=== PATIENT | male | born 1955 | race Caucasian/White ===

== ENCOUNTER 2017-03-23 09:08 | Emergency (ER) | payer OTHER ==
[~2017-03-23] VITALS: Ht 175.3 cm; Wt 92.0 kg
[~2017-03-23 09:08] MED LIST: Z.0.NO CURRENT MEDS
[2017-03-23 09:11] VITALS: BP 134/82; PULSE 99; RESP 16; TEMP 98.6; O2SAT 98
--- NOTE | 2017-03-23 09:34 | PD ---
HPI Chief Complaint: Abdominal Pain Time Seen by Provider: 09:16 Travel History International Travel<30 days: No Contact w/Intl Traveler<30days: No Traveled to known affect area: No History of Present Illness HPI 61-year-old male presents to emergency department with a two-month history of right groin pain. The pain is moderate when he walks or coughs and goes away when he rests/sits. Pain is not exacerbated by lifting his legs, ejaculation, urinating, bowel movements. Patient denies fever, chills, abdominal pain, nausea, vomiting, diarrhea. Denies illicit drug use. Patient denies surgical history of his abdomen. Pt has seen his PCP, Dr. Serrano who told him this was a hernia. [facility] Past Medical History Blood Disorders: No Cardiovascular Problems: No Endocrine: No Gastrointestinal Disorders: No (C/O ADB PAIN) Genitourinary: No Immune Disorder: No Musculoskeletal: Yes Neurologic: No Psychiatric: No Reproductive: No Respiratory: No Past Surgical History Tonsillectomy: Yes Social History Alcohol Use: Yes (Beer a night) Tobacco Use: No Substance Use: No Allergies-Medications (Allergen,Severity, Reaction): Coded Allergies: No Known Allergies (Verified Adverse Reaction, Unknown, 03/23/17) Reported Meds & Prescriptions Reported Meds & Active Scripts Active No Active Prescriptions or Reported Medications Review of Systems Except as stated in HPI: all other systems reviewed are Neg Physical Exam Narrative GENERAL: Well-nourished, well-developed patient. SKIN: Focused skin assessment warm/dry. HEAD: Normocephalic. EYES: No scleral icterus. No injection or drainage. NECK: Supple, trachea midline. No JVD or lymphadenopathy. CARDIOVASCULAR: Regular rate and rhythm without murmurs, gallops, or rubs. RESPIRATORY: Breath sounds equal bilaterally. No accessory muscle use. GASTROINTESTINAL: Abdomen soft, non-tender, nondistended. Protuberant. Examined with cutting and splicing supervisor in the room: Right lower/right pelvic region tender to palpation. Hernia left direct, right indirect. that reduces spontaneously. No edema, ecchymosis. MUSCULOSKELETAL: No cyanosis, or edema. BACK: Nontender without obvious deformity. No CVA tenderness. Data Data Last Documented VS Vital Signs Date Time Temp Pulse Resp B/P (MAP) Pulse Ox O2 Delivery O2 Flow Rate FiO2 03/23/17 10:02 03/23/17 09:11 98.6 99 16 98 Orders Orders Ed Discharge Order (03/23/17 09:49) MDM Medical Decision Making Medical Screen Exam Complete: Yes Emergency Medical Condition: Yes Differential Diagnosis Hernia versus appendicitis versus bowel obstruction versus testicular pain Narrative Course 61-year-old male presents to emergency department with a two-month history of right groin pain. The pain is moderate when he walks or coughs and goes away when he rests/sits. Pain is not exacerbated by lifting his legs, ejaculation, urinating, bowel movements. Patient denies fever, chills, abdominal pain, nausea, vomiting, diarrhea. Denies illicit drug use. Patient denies surgical history of his abdomen. Pt has seen his PCP, Dr. Serrano who told him this was a hernia. Physical exam consistent with hernia. Patient resting comfortably without pain. Patient to follow up with a general surgeon, Dr. Walsh, and primary care physician within 2 days. Advised to return to the ED if his symptoms persist or worsen Vital signs stable. Pt understands and agrees. Diagnosis Primary Impression: Hernia Referrals: General Surgeon Additional Instructions: Follow-up with general surgeon within 2 days. Follow-up with your primary care physician within 2 days If your pain persists or worsens return to the emergency department Scripts No Active Prescriptions or Reported Meds Disposition: 01 DISCHARGE HOME Condition: Stable Libia Alvarez Mar 23, 2017 09:34
== END 2017-03-23 10:05 | disposition home or self-care (01) ==
LOC: NEPD 09:08
DX: K40.20 Bilateral inguinal hernia, without obstruction or gangrene, not specified as recurrent (principal)
CPT/HCPCS: 99282

== ENCOUNTER → 2017-05-09 | Day surgery (SDC) | payer OTHER ==
[~2017-05-09] VITALS: Ht 175.3 cm; Wt 92.1 kg
[~2017-05-09] MED LIST changes: +*morphine SULFATE 4 MG/ML PERIprocedure ONLY ONE; +ACETAMINOPHEN 1000 MG/100 ML 100 ML IV ONE; +ACETAMINOPHEN 1000 MG/100 ML 100 ML IV SCH; +BUPIVACAINE/EPINEPHRINE 0.5% PF 30 ML VIAL ONE; +CHLORHEXIDINE GLUCONATE 2 % 1 PACK (2 CLOTHS) TOPICAL PRN; +DO NOT ADM ANY ANTICOAGULANT DRUGS PRN; +LACTATED RINGER'S 1000 ML IV PRN; +METOPROLOL TARTRATE 25 MG TAB PO PRN; +MORPHINE SULFATE 2 MG/ML INJ IV PRN; +ONDANSETRON HCL 4 MG/2 ML VIAL IV PUSH PRN; +POVIDONE IODINE 5% (ANTISEPSIS KIT) 4 APPLICATIONS EACH NARE PRN; +SODIUM CHLORID 0.9% 500 ML IV PRN; -Z.0.NO CURRENT MEDS; +ceFAZolin 2 GM PREMIX 50 ML IV SCH; +oxyCODONE/ACETAMINOPHEN 5 MG/325 MG TAB PO PRN
--- NOTE | 2017-05-09 13:20 | PD.OP ---
cc: Simeon Mims MD Operative Report Date of Surgery: May 09, 2017 Preoperative Diagnosis: (1) Bilateral inguinal hernia Postoperative Diagnosis: (1) Bilateral inguinal hernia Procedure: Laparoscopic bilateral inguinal hernia repair with mesh Anesthesia: CHRIST Surgeon: Simeon Mims Breakfast And Room Attendant(s): Leda CALDERON Operation and Findings: Complications: None apparent Estimated blood loss: 10 cc Operative findings: Large direct hernia defect and small indirect on the right. Moderate direct and small indirect hernia on the left. Procedure in detail: The patient was taken to the operating room and placed in the supine position. General endotracheal anesthesia was induced. The abdomen was prepped and draped in usual sterile fashion and a surgical timeout performed to verify correct patient procedure and site. A 1 cm incision was made inferior to the umbilicus after infiltration of local anesthetic through previous scar from many laparotomy.. Dissection carried down to the right of the scar to the underlying fascia and the anterior fascia to the left of midline was incised vertically. The retrorectus space was developed and the dissecting balloon placed down towards the pubis. The extraperitoneal space was developed by insufflating the balloon. This trocar was then removed and the structural balloon was placed. The extraperitoneal space was insufflated to 11 mmHg with CO2 gas which the patient tolerated well. Next two 5 mm ports were placed in the lower midline. Attention was turned to the right inguinal area. Lateral dissection was carried out until the psoas muscle was identified. Medially Eligio's ligament was identified. The spermatic cord was evaluated and a small indirect hernia was present. The peritoneum was carefully from the spermatic cord structures. There was a small defect in the peritoneum created which was closed with a PDS Endoloop. A large direct defect was noted and fatty tissue reduced.. Ultrapro advanced mesh was cut to 12 x 15 cm size and was placed in the right inguinal area. It was attached at Eligio's ligament and superior laterally lateral to the epigastric vessels, and anterior superiorly in the rectus with secure strap tacker. A final tack was placed just medial to the large direct defect. There was complete coverage of the entire inguinal floor including the indirect and direct spaces. Attention was then turned to the left inguinal area. Due to some intraperitoneal insufflation a Veress needle was entered intra-abdominally through a separate stab incision in the left upper abdomen. . Next, Lateral dissection was carried out until the psoas muscle was identified. Medially Eligio's ligament was identified. The spermatic cord was evaluated and a small indirect hernia was present. The peritoneum was carefully from the spermatic cord structures. A moderate direct defect was noted and fatty tissue reduced.. A mesh was cut to size for the left inguinal floor. This was placed and secured in the same locations except the final medial tach using the secure strap tacker. There is complete coverage of the left inguinal area. The extraperitoneal spaces and allowed to desufflate and trochars were removed. The anterior fascia was closed with running 2-0 Vicryl suture and skin with 4- 0 Monocryl subcuticular as well as Dermabond. The patient tolerated the procedure well and was extubated and taken to PACU in stable condition. Simeon Mims MD May 09, 2017 13:20
[2017-05-09 14:45] VITALS: BP 138/82; PULSE 76; RESP 18; TEMP 98.5; O2SAT 96
== END | disposition home or self-care (01) ==
LOC: HSDC 09:47
PROVIDERS: ATTEND Surgery
DX: K40.20 Bilateral inguinal hernia, without obstruction or gangrene, not specified as recurrent (principal)
CPT/HCPCS: 00840; 49650; C1727; C1781; J0131; J0690; J2270; J7120